=== PATIENT | female | born 1980 | race Caucasian/White ===

== ENCOUNTER 2018-01-25 19:38 | Emergency (ER) | payer OTHER, SELFPAY ==
[2018-01-25 19:38] VITALS: BMI 20.9
[2018-01-25] MEDS ORDERED: Sodium Chloride 0.9% 1,000 ML IV ONE ×2 (20:36→20:37)
[2018-01-25] MEDS ORDERED: Iohexol 240 (50 ml) PO ONE (20:38)
--- NOTE | 2018-01-25 20:39 | C.PDOC ---
History Of Present Illness 37 year old female presents to the ER with a complaint of intermittent RUQ pain for the past week, associated with some nausea and diarrhea today. Denies dysuria or hematuria. Chief Complaint (Nursing): Abdominal Pain History Per: Patient History/Exam Limitations: no limitations Onset/Duration Of Symptoms: Days, Intermittent Episodes Current Symptoms Are (Timing): Still Present Location Of Pain/Discomfort: RUQ Quality Of Discomfort: Unable To Describe Associated Symptoms: Nausea, Diarrhea. denies: Fever, Chills, Vomiting Exacerbating Factors: None Alleviating Factors: None Recent travel outside of the [place]: No Abnormal Vaginal Bleeding: No Past Medical History Reviewed: Historical Data, Nursing Documentation, Vital Signs Vital Signs: Last Vital Signs Temp 98.7 F 01/25/18 19:45 Pulse 87 01/25/18 19:45 Resp 20 01/25/18 19:45 BP 121/77 01/25/18 19:45 Pulse Ox 100 01/25/18 20:45 - Medical History PMH: Gall Bladder Disease, Pancreatitis Denies: Chronic Kidney Disease Surgical History: Cholecystectomy () - [facility] Procedures DILATION OF COMMON BILE DUCT WITH INTRALUMINAL DEVICE, ENDO (04/16/15) INSERTION OF INFUSION DEV INTO R BASILIC VEIN, PERC APPROACH (04/16/15) INTRODUCTION OF NUTRITIONAL INTO PERIPH VEIN, PERC APPROACH (04/16/15) LAPAROSCOPIC CHOLECYSTECTOMY (07/31/14) ULTRASONOGRAPHY OF RIGHT UPPER EXTREMITY VEINS, GUIDANCE (04/16/15) Family History: States: Unknown Family Hx - Social History Hx Tobacco Use: No Hx Alcohol Use: No Hx Substance Use: No - Immunization History Hx Tetanus Toxoid Vaccination: No Hx Influenza Vaccination: No Hx Pneumococcal Vaccination: No Review Of Systems Constitutional: Negative for: Fever, Chills Cardiovascular: Negative for: Chest Pain, Palpitations Respiratory: Negative for: Cough, Shortness of Breath Gastrointestinal: Positive for: Nausea, Abdominal Pain, Diarrhea. Negative for : Vomiting Genitourinary: Negative for: Dysuria, Hematuria Physical Exam - Physical Exam Appears: Other (Mild distress) Skin: Normal Color, Warm, Dry Head: Atraumatic, Normacephalic Eye(s): bilateral: Normal Inspection Oral Mucosa: Moist Chest: Symmetrical, No Tenderness Cardiovascular: Rhythm Regular Respiratory: Normal Breath Sounds, No Rales, No Rhonchi, No Wheezing Gastrointestinal/Abdominal: Soft, Tenderness (RUQ/Epigastric), No Guarding, No Rebound Back: No CVA Tenderness Neurological/Psych: Oriented x3, Normal Speech ED Course And Treatment - Laboratory Results Result Diagrams: 01/25/18 20:45 01/25/18 20:45 O2 Sat by Pulse Oximetry: 100 (room air) Pulse Ox Interpretation: Normal Progress Note: CT abd/pel, blood work, and urinalysis ordered. Bentyl, pepcid, IV fluids, and toradol administered. Disposition Counseled Patient/Family Regarding: Diagnosis - Disposition Referrals: [facility] [Outside] Disposition: HOME/ ROUTINE Disposition Time: 01:04 Condition: STABLE Prescriptions: Dicyclomine [Bentyl] 10 mg PO QID #20 cap Famotidine [Pepcid] 20 mg PO BID #20 tab Instructions: Acute Abdomen (Belly Pain), Adult (DC), Gastritis (DC), Inflammatory Bowel Disease Forms: [facility] (Ukrainian), Gen Discharge Inst Tajik Print Language: URDU - POA Present On Arrival: None - Clinical Impression Clinical Impression: Abdominal pain, Gastritis, Enteritis - Scribe Statement The provider has reviewed the documentation as recorded by the Scribe Hilario Mo All medical record entries made by the Isabellibrachel were at my direction and personally dictated by me. I have reviewed the chart and agree that the record accurately reflects my personal performance of the history, physical exam, medical decision making, and the department course for this patient. I have also personally directed, reviewed, and agree with the discharge instructions and disposition.
[2018-01-25 20:48] LABS: BASO % 0.3 % (0.0-2.0); EOS % 0.3 % (0.0-4.0); HEMOGLOBIN 13.5 g/dL (11.0-16.0); LYMPH # 1.2 K/uL (1.0-4.3); LYMPH % 12.2 % (20.0-40.0); MEAN CELL VOLUME 88.5 fL (81.0-99.0); MEAN CORPUSCULAR HEMOGLOBIN 29.8 pg (27.0-31.0); MEAN CORPUSCULAR HGB CONC 33.6 g/dL (33.0-37.0); MEAN PLATELET VOLUME 10.5 fL (7.2-11.7); MONO # 0.4 K/uL (0.0-0.8); NEUT % 83.2 % (50.0-75.0); NRBC % 0.1 % (0.0-2.0); RBC 4.54 Mil/uL (3.80-5.20); RED CELL DISTRIBUTION WIDTH 13.3 % (11.5-14.5); WHITE BLOOD COUNT 9.6 K/uL (4.8-10.8)
[2018-01-25 21:04] LABS: ALB/GLOB RATIO 1.3 (1.0-2.1); ALBUMIN 4.7 g/dL (3.5-5.0); CALCIUM 9.2 mg/dl (8.6-10.4); GFR AFRICAN-AMERICAN > 60; GFR NON-AFRICAN AMERICAN > 60; LIPASE 91 U/L (23-300)
[2018-01-25 21:06] LABS: ALT/SGPT 55 U/L (9-52); AST/SGOT 45 U/L (14-36); BLOOD UREA NITROGEN 10 mg/dL (7-17)
[2018-01-25 21:08] LABS: HCG,QUALITATIVE URINE NEGATIVE (NEGATIVE); SQUAMOUS EPITHIAL 1 /hpf (0-5); URINE BACTERIA RARE (<OCC); URINE BILIRUBIN NEGATIVE (NEGATIVE); URINE BLOOD NEGATIVE (NEGATIVE); URINE CLARITY Clear (Clear); URINE COLOR Straw (YELLOW); URINE GLUCOSE (UA) NORMAL (Normal); URINE LEUKOCYTE ESTERASE NEG Leu/uL (Negative); URINE PROTEIN NEGATIVE (NEGATIVE); URINE UROBILINOGEN NORMAL mg/dL (0.2-1.0)
[2018-01-25] MEDS ORDERED: Sodium Chloride 0.9% 1,000 ML ONE (21:08)
[2018-01-25] MEDS ORDERED: Iohexol 240 (50 ml) ONE (21:08)
[2018-01-25] MEDS ORDERED: Iodixanol 320 MG/ML 100 ML BOTTLE IV ONE (21:53)
[2018-01-26 01:22] VITALS: BP 99/64; PULSE 73; RESP 16; TEMP 98.9; O2SAT 98
--- NOTE | 2018-01-26 08:28 | CT ---
Date of service: 01/25/2018 PROCEDURE: CT Abdomen and Pelvis without intravenous contrast HISTORY: Abdominal pain COMPARISON: CT abdomen and pelvis dated 05/05/2015 TECHNIQUE: Multiple contiguous axial images were performed through the abdomen and pelvis with intravenous contrast. Subsequently, sagittal and coronal reformatted images were obtained. Radiation dose: Total exam DLP = 311 mGy-cm. This CT exam was performed using one or more of the following dose reduction techniques: Automated exposure control, adjustment of the mA and/or kV according to patient size, and/or use of iterative reconstruction technique. FINDINGS: LOWER THORAX: Unremarkable. LIVER: Diffuse decrease in hepatic parenchymal density consistent with fatty infiltration. GALLBLADDER AND BILE DUCTS: Cholecystectomy. PANCREAS: Unremarkable. No gross lesion or ductal dilatation. SPLEEN: Unremarkable. ADRENALS: Unremarkable. No mass. KIDNEYS AND URETERS: Unremarkable. No hydronephrosis. No solid mass. VASCULATURE: Unremarkable. No aortic aneurysm. BOWEL: Distal small bowel and terminal ileum are thick-walled raising suspicion for acute enteritis. No evidence gross obstruction. APPENDIX: Unremarkable. Normal appendix. PERITONEUM: Unremarkable. No free fluid. No free air. LYMPH NODES: Unremarkable. No enlarged lymph nodes. BLADDER: Unremarkable. REPRODUCTIVE: Unremarkable. Ovarian follicles. BONES: Degenerative changes. Relative areas of patchy sclerosis within the visualized osseous structures particularly at the level of pelvis. Clinical correlation. OTHER FINDINGS: None. IMPRESSION: Acute enteritis. Additional findings as above. These findings were preliminarily reported at 12:07 a.m. on 01/26/[address] Megan Townsend from [employer].
== END 2018-01-26 01:24 | disposition home or self-care (01) ==
LOC: C.ER 19:38
DX: K29.70 Gastritis, unspecified, without bleeding (principal); K52.9 Noninfective gastroenteritis and colitis, unspecified; R10.11 Right upper quadrant pain
CPT/HCPCS: 74177; 80053; 81001; 83690; 84703; 85025; 96372; 96374; 96375; 99284; J0500; J1885; J7030; Q9966; Q9967

== ENCOUNTER 2018-03-22 18:13 | Emergency (ER) | payer OTHER ==
[2018-03-22 18:27] VITALS: BMI 25.4
[2018-03-22] MEDS ORDERED: Sodium Chloride 0.9% 1,000 ML IV ONE (20:22)
--- NOTE | 2018-03-22 20:23 | C.PDOC ---
History Of Present Illness 38 year old female presents to the ED c/o of abdominal pain for the past 4-5 days. Patient reports her pain is associated with nausea and vomiting. Patient states she went to her [employer] doctor who gave her antibiotics. Patient has previous history of pancreatitis. Patient denies fever, chills, diarrhea, dysuria, hematuria, back pain. Chief Complaint (Nursing): Abdominal Pain History Per: Patient History/Exam Limitations: no limitations Onset/Duration Of Symptoms: Days (4-5) Current Symptoms Are (Timing): Still Present Location Of Pain/Discomfort: Epigastric Radiation Of Pain To:: None Quality Of Discomfort: "Pain" Associated Symptoms: Nausea, Vomiting. denies: Diarrhea, Loss Of Appetite, Urinary Symptoms Alleviating Factors: None Recent travel outside of the [place]: No Additional History Per: Patient Abnormal Vaginal Bleeding: No Past Medical History Reviewed: Historical Data, Nursing Documentation, Vital Signs Vital Signs: Last Vital Signs Temp 98.5 F 03/22/18 18:28 Pulse 66 03/22/18 18:28 Resp 18 03/22/18 18:28 BP 124/71 03/22/18 18:28 Pulse Ox 98 03/22/18 18:28 - Medical History PMH: Gall Bladder Disease, Pancreatitis Denies: Chronic Kidney Disease Surgical History: Cholecystectomy () - [facility] Procedures DILATION OF COMMON BILE DUCT WITH INTRALUMINAL DEVICE, ENDO (04/16/15) INSERTION OF INFUSION DEV INTO R BASILIC VEIN, PERC APPROACH (04/16/15) INTRODUCTION OF NUTRITIONAL INTO PERIPH VEIN, PERC APPROACH (04/16/15) LAPAROSCOPIC CHOLECYSTECTOMY (07/31/14) ULTRASONOGRAPHY OF RIGHT UPPER EXTREMITY VEINS, GUIDANCE (04/16/15) Family History: States: Unknown Family Hx - Social History Hx Tobacco Use: No Hx Alcohol Use: No Hx Substance Use: No - Immunization History Hx Tetanus Toxoid Vaccination: No Hx Influenza Vaccination: No Hx Pneumococcal Vaccination: No Review Of Systems Constitutional: Negative for: Fever, Chills Cardiovascular: Negative for: Chest Pain Respiratory: Negative for: Cough Gastrointestinal: Positive for: Nausea, Vomiting, Abdominal Pain. Negative for: Diarrhea Genitourinary: Negative for: Dysuria, Hematuria Musculoskeletal: Negative for: Back Pain Physical Exam - Physical Exam Appears: Non-toxic, In Acute Distress (due to pain) Skin: Normal Color, Warm, Dry Head: Atraumatic, Normacephalic Eye(s): bilateral: Normal Inspection Oral Mucosa: Moist Neck: Normal ROM, Supple Chest: Symmetrical Cardiovascular: Rhythm Regular Respiratory: Normal Breath Sounds, No Rales, No Rhonchi, No Wheezing Gastrointestinal/Abdominal: Soft, Tenderness (epigastric and hypogastric), No Guarding, No Rebound Extremity: Normal ROM, No Tenderness, No Swelling Neurological/Psych: Oriented x3, Normal Speech, Normal Cognition Gait: Steady ED Course And Treatment - Laboratory Results Result Diagrams: 03/22/18 20:26 03/22/18 20:26 O2 Sat by Pulse Oximetry: 98 (ON RA) Pulse Ox Interpretation: Normal - CT Scan/US CT abd/pelvis Other Rad Studies (CT/US): Read By Radiologist, Radiology Report Reviewed CT/US Interpretation: CT SCAN OF THE ABDOMEN AND PELVIS WITH CONTRAST. CLINICAL HISTORY: Abdominal pain. TECHNIQUE: Multiple axial and coronal CT images were obtained through the abdomen and pelvis after administration of an oral intravenous contrast material. COMPARISON: 01/25/2018. COMMENTS: The liver is of uniform attenuation without mass or defect. There is no intra or extrahepatic biliary ductal dilatation. The spleen is normal. The gallbladder is surgically absent. The pancreas is of normal contour and attenuation characteristics. There is no evidence of adrenal mass. Both kidneys demonstrate prompt and equal nephrograms. The kidneys are normal in size, shape and configuration. There is no evidence of renal or ureteral mass. No renal or ureteral calculi are identified. There is no hydroureter or hydronephrosis. No evidence for appendicitis. There is no bowel wall thickening. No evidence for small or large bowel obstruction. There is no evidence of abdominal ascites or lymphadenopathy. There is no evidence of intrinsic or extrinsic bladder mass. There is no pelvic ascites or lymphadenopathy. Diffusely thickened bladder. 1.7 cm left ovarian cyst. Images of the lung bases show no evidence of pleural or parenchymal mass. There are no pleural effusions. The bony structures are free of lytic or blastic lesions. IMPRESSION: Diffusely thickened bladder, probably underdistention. Exclusion of mild cystitis can be better done by correlation with urinalysis. Otherwise, no active pathology. Thank you for your kind referral of this patient. . Electronically signed on Mar 23, 2018 12:28:45 AM EDT by: Emily Ott M.D., Certified by MICKI, MSK, Neuroradiology Medical Decision Making Medical Decision Making: Plan: * CT abd/pelvis * Labs * Bentyl 20 mg IM * Pepcid 20 mg IVP * IV fluids * UA Disposition Counseled Patient/Family Regarding: Diagnosis - Disposition Referrals: [facility] [Outside] Disposition: HOME/ ROUTINE Disposition Time: 01:07 Condition: STABLE Prescriptions: Ciprofloxacin [Cipro] 1 tab PO BID #14 tab Dicyclomine [Bentyl] 10 mg PO QID #14 cap Instructions: Acute Abdomen (Belly Pain), Child (DC), Acute Cystitis (DC) Forms: [employer] (Romansh) Print Language: MALAY - POA Present On Arrival: None - Clinical Impression Clinical Impression: Abdominal pain, Cystitis - Scribe Statement The provider has reviewed the documentation as recorded by the Scribe Mj Cavazos All medical record entries made by the Scribe were at my direction and personally dictated by me. I have reviewed the chart and agree that the record accurately reflects my personal performance of the history, physical exam, medical decision making, and the department course for this patient. I have also personally directed, reviewed, and agree with the discharge instructions and disposition.
[2018-03-22] MEDS ORDERED: Iohexol 240 (50 ml) PO ONE (20:25)
[2018-03-22 20:31] LABS: BASO % 0.3 % (0.0-2.0); EOS # 0.1 K/uL (0.0-0.7); EOS % 1.2 % (0.0-4.0); HEMOGLOBIN 12.7 g/dL (11.0-16.0); LYMPH # 3.2 K/uL (1.0-4.3); LYMPH % 31.5 % (20.0-40.0); MEAN CELL VOLUME 88.4 fL (81.0-99.0); MEAN CORPUSCULAR HEMOGLOBIN 30.3 pg (27.0-31.0); MEAN CORPUSCULAR HGB CONC 34.3 g/dL (33.0-37.0); MONO # 0.5 K/uL (0.0-0.8); NEUT # 6.2 K/uL (1.8-7.0); RBC 4.19 Mil/uL (3.80-5.20); RED CELL DISTRIBUTION WIDTH 13.2 % (11.5-14.5); WHITE BLOOD COUNT 10.1 K/uL (4.8-10.8)
[2018-03-22 20:36] LABS: HCG,QUALITATIVE URINE NEGATIVE (NEGATIVE)
[2018-03-22] MEDS ORDERED: Sodium Chloride 0.9% 1,000 ML ONE (20:41)
[2018-03-22 20:42] LABS: SQUAMOUS EPITHIAL 2 /hpf (0-5); URINE BACTERIA RARE (<OCC); URINE BILIRUBIN NEGATIVE (NEGATIVE); URINE BLOOD NEGATIVE (NEGATIVE); URINE CLARITY Clear (Clear); URINE COLOR Straw (YELLOW); URINE GLUCOSE (UA) NORMAL (Normal); URINE LEUKOCYTE ESTERASE NEG Leu/uL (Negative); URINE PROTEIN NEGATIVE (NEGATIVE); URINE UROBILINOGEN NORMAL mg/dL (0.2-1.0)
[2018-03-22] MEDS ORDERED: Iohexol 240 (50 ml) ONE (20:42)
[2018-03-22 20:45] LABS: ALB/GLOB RATIO 1.4 (1.0-2.1); ALBUMIN 4.5 g/dL (3.5-5.0); ALT/SGPT 55 U/L (9-52); AST/SGOT 42 U/L (14-36); BLOOD UREA NITROGEN 11 mg/dL (7-17); CALCIUM 9.7 mg/dl (8.6-10.4); GFR NON-AFRICAN AMERICAN > 60; LIPASE 119 U/L (23-300)
[2018-03-22 21:31] VITALS: TEMP 98.7
[2018-03-22] MEDS ORDERED: Iodixanol 320 MG/ML 100 ML BOTTLE IV ONE (23:07)
[2018-03-23 02:22] VITALS: BP 115/85; PULSE 88; RESP 14; O2SAT 100
--- NOTE | 2018-03-23 10:02 | CT ---
Date of service: 03/22/2018 PROCEDURE: CT Abdomen and Pelvis with contrast HISTORY: abd pain/ hx of pancreatitis/ pelvic pain COMPARISON: 01/25/2018 TECHNIQUE: Intravenous contrast dose: 100 cc Visipaque 320 Radiation dose: Total exam DLP = 300.92 mGy-cm. This CT exam was performed using one or more of the following dose reduction techniques: Automated exposure control, adjustment of the mA and/or kV according to patient size, and/or use of iterative reconstruction technique. FINDINGS: LOWER THORAX: Unremarkable. LIVER: Hepatic steatosis. No focal masses. No intrahepatic bile duct dilatation or perihepatic ascites. GALLBLADDER AND BILE DUCTS: Status post cholecystectomy. No abnormality is seen in the gallbladder fossa. PANCREAS: Unremarkable. No gross lesion or ductal dilatation. SPLEEN: Unremarkable. ADRENALS: Unremarkable. No mass. KIDNEYS AND URETERS: Unremarkable. No hydronephrosis. No solid mass. VASCULATURE: Unremarkable. No aortic aneurysm. BOWEL: Unremarkable. No obstruction. No gross mural thickening. APPENDIX: Normal appendix. PERITONEUM: Unremarkable. No free fluid. No free air. LYMPH NODES: Unremarkable. No enlarged lymph nodes. BLADDER: Unremarkable. REPRODUCTIVE: Small left adnexal cysts, follicles. BONES: No acute fracture. OTHER FINDINGS: None. IMPRESSION: No acute findings related to/accounting for the clinical presentation. Additional benign and/or incidental findings described above. Concordant results (preliminary interpretation) provided by [employer]. Procedure Completed: 23:26 Preliminary Report: Dictated and Authenticated: 00:28 Final Interpretation: 10:00. March 22, 2018
== END 2018-03-23 02:20 | disposition home or self-care (01) ==
LOC: C.ER 18:13
DX: N30.90 Cystitis, unspecified without hematuria (principal); R10.13 Epigastric pain
CPT/HCPCS: 74177; 80053; 81001; 83690; 84703; 85025; 96372; 96374; 96375; 99284; J0500; J2405; J2765; J7030; Q9966; Q9967

== ENCOUNTER 2018-03-26 17:58 | Emergency (ER) | payer OTHER ==
[2018-03-26 17:58] VITALS: BMI 25.4
[2018-03-26] MEDS ORDERED: Sodium Chloride 0.9% 1,000 ML IV ONE (18:34)
--- NOTE | 2018-03-26 19:07 | C.PDOC ---
History Of Present Illness 38 year old female presents to the ED BIBA status post syncopal episode at PMD Dr. Karley Motta's office. Reports she felt weak and passed out after she was given injections of Benadryl and B12. Denies any head injury or trauma. Notes epi gastric pain radiating to back. Denies any chest pain, shortness of breath, palpitations, vomiting, nausea, or diarrhea. Time Seen by Provider: 03/26/18 18:27 Chief Complaint (Nursing): Syncope History Per: Patient, EMS History/Exam Limitations: no limitations Onset/Duration Of Symptoms: Days Current Symptoms Are (Timing): Still Present Past Medical History Reviewed: Historical Data, Nursing Documentation, Vital Signs Vital Signs: Last Vital Signs Temp 98.6 F 03/26/18 18:30 Pulse 71 03/26/18 18:30 Resp 18 03/26/18 18:30 BP 103/67 03/26/18 18:30 Pulse Ox 97 03/26/18 18:30 - Medical History PMH: Gall Bladder Disease, Pancreatitis Denies: Chronic Kidney Disease Surgical History: Cholecystectomy () - [email or web address] Procedures DILATION OF COMMON BILE DUCT WITH INTRALUMINAL DEVICE, ENDO (04/16/15) INSERTION OF INFUSION DEV INTO R BASILIC VEIN, PERC APPROACH (04/16/15) INTRODUCTION OF NUTRITIONAL INTO PERIPH VEIN, PERC APPROACH (04/16/15) LAPAROSCOPIC CHOLECYSTECTOMY (07/31/14) ULTRASONOGRAPHY OF RIGHT UPPER EXTREMITY VEINS, GUIDANCE (04/16/15) Family History: States: No Known Family Hx - Social History Hx Tobacco Use: No Hx Alcohol Use: No Hx Substance Use: No - Immunization History Hx Tetanus Toxoid Vaccination: No Hx Influenza Vaccination: No Hx Pneumococcal Vaccination: No Review Of Systems Cardiovascular: Negative for: Chest Pain, Palpitations Respiratory: Negative for: Shortness of Breath Gastrointestinal: Positive for: Abdominal Pain (epigastric pain radiating to her back ). Negative for: Nausea, Vomiting Physical Exam - Physical Exam Appears: Non-toxic, Other (Mild pain ) Skin: Warm, Dry Head: Atraumatic, Normacephalic, No Abrasion, No Laceration Eye(s): bilateral: Normal Inspection, PERRL, EOMI Nose: Normal Oral Mucosa: Moist Neck: Normal ROM Chest: Symmetrical Cardiovascular: Rhythm Regular Respiratory: Normal Breath Sounds, No Rales, No Rhonchi, No Wheezing Gastrointestinal/Abdominal: Soft, Tenderness (Epigastric tenderness), No Guarding, No Rebound, Other (laparoscopic scar noted to RUQ) Extremity: Normal ROM Extremity: Bilateral: Atraumatic Neurological/Psych: Oriented x3, Normal Speech, Normal Motor, Normal Sensation, Normal Reflexes Gait: Steady ED Course And Treatment - Laboratory Results Result Diagrams: 03/26/18 19:30 03/26/18 19:30 O2 Sat by Pulse Oximetry: 97 (RA) Pulse Ox Interpretation: Normal Progress Note: Patient treated with Toradol, Zofran, Protonix and IV fluids. Blood and urine collected and sent to the lab for analysis. EKG and CXR ordered. - Physician Consult Information Physician Contacted: Vj Motta Outcome Of Conversation: Spoke with PMD, patient given IM benadryl and Vit B12. Approx 30 min later, patient went to the bathroom, and after using the bathroom had 1 syncopal episode in the office. EMS called. Vitals normal in office. Disposition Counseled Patient/Family Regarding: Studies Performed, Diagnosis, Need For Followup - Disposition Referrals: Vj Motta MD [Staff Provider] - Disposition: HOME/ ROUTINE Disposition Time: 21:50 Condition: STABLE Additional Instructions: FOLLOW UP WITH YOUR DOCTOR IN 1-2 DAYS DRINK PLENTY OF FLUIDS RETURN TO EMERGENCY ROOM IF SYMPTOMS WORSEN SEGUIR CON LARKIN MDICO EN 1-2 [place] BEBER MUCHO LQUIDO VUELVA A LA [facility] DE [facility] SI LOS SNTOMAS SE [place] PROBLEMAS Instructions: Vasovagal Response (DC), Chronic Pancreatitis (DC) Forms: [employer] (Uzbek) Print Language: CAMBODIAN - Clinical Impression Clinical Impression: Episode of syncope, Chronic pancreatitis - Scribe Statement The provider has reviewed the documentation as recorded by the Scribe Brandi Brown All medical record entries made by the Scribe were at my direction and personally dictated by me. I have reviewed the chart and agree that the record accurately reflects my personal performance of the history, physical exam, medical decision making, and the department course for this patient. I have also personally directed, reviewed, and agree with the discharge instructions and disposition.
[2018-03-26 19:20] VITALS: RESP 16
[2018-03-26 19:37] LABS: BASO % 0.1 % (0.0-2.0); EOS # 0.1 K/uL (0.0-0.7); EOS % 0.6 % (0.0-4.0); HEMOGLOBIN 12.8 g/dL (11.0-16.0); LYMPH # 0.8 K/uL (1.0-4.3); LYMPH % 7.3 % (20.0-40.0); MEAN CORPUSCULAR HEMOGLOBIN 30.1 pg (27.0-31.0); MEAN CORPUSCULAR HGB CONC 34.2 g/dL (33.0-37.0); MONO # 0.2 K/uL (0.0-0.8); MONO % 1.4 % (0.0-10.0); NEUT # 9.8 K/uL (1.8-7.0); NEUT % 90.6 % (50.0-75.0); NRBC % 0.1 % (0.0-2.0); PLATELET COUNT 205 K/uL (130-400); RBC 4.26 Mil/uL (3.80-5.20); WHITE BLOOD COUNT 10.8 K/uL (4.8-10.8)
[2018-03-26 19:55] LABS: ALB/GLOB RATIO 1.2 (1.0-2.1); ALBUMIN 4.5 g/dL (3.5-5.0); ALT/SGPT 48 U/L (9-52); AST/SGOT 42 U/L (14-36); BLOOD UREA NITROGEN 6 mg/dL (7-17); CALCIUM 9.2 mg/dl (8.6-10.4); GFR NON-AFRICAN AMERICAN > 60; LIPASE 56 U/L (23-300)
[2018-03-26 19:57] LABS: HCG,QUALITATIVE URINE NEGATIVE (NEGATIVE)
[2018-03-26 20:00] LABS: SQUAMOUS EPITHIAL 3 /hpf (0-5); URINE BILIRUBIN NEGATIVE (NEGATIVE); URINE CLARITY Clear (Clear); URINE COLOR Straw (YELLOW); URINE GLUCOSE (UA) NORMAL (Normal); URINE LEUKOCYTE ESTERASE NEG Leu/uL (Negative); URINE PROTEIN NEGATIVE (NEGATIVE); URINE UROBILINOGEN NORMAL mg/dL (0.2-1.0)
[2018-03-26 20:03] LABS: CK-MB 0.34 ng/mL (0.0-3.38)
[2018-03-26 20:04] LABS: URINE BLOOD TRACE-INTACT (NEGATIVE)
[2018-03-26 20:13] LABS: EOSINOPHIL 1 % (0-4); LYMPHOCYTE 10 % (20-40); MONOCYTE 3 % (0-10); NEUTROPHIL 86 % (50-75); TOTAL CELLS COUNTED 100
[2018-03-26 20:14] LABS: LARGE PLATELETS PRESENT; OVALOCYTES SLIGHT; PLATELET ESTIMATE NORMAL (NORMAL); POIKILOCYTOSIS SLIGHT
[2018-03-26] MEDS ORDERED: Iodixanol 320 MG/ML 100 ML BOTTLE IV ONE (20:47)
[2018-03-26 22:11] VITALS: BP 104/65; PULSE 64; TEMP 98.3; O2SAT 98
--- NOTE | 2018-03-27 08:39 | RAD ---
Date of service: 03/26/2018 PROCEDURE: CHEST RADIOGRAPH, 1 VIEW HISTORY: Syncope COMPARISON: 05/04/2015. FINDINGS: LUNGS: The lungs are clear. PLEURA: No pneumothorax or pleural fluid seen. CARDIOVASCULAR: Normal. OSSEOUS STRUCTURES: No significant abnormalities. VISUALIZED UPPER ABDOMEN: Normal. OTHER FINDINGS: None. IMPRESSION: No active pulmonary disease.
--- NOTE | 2018-03-27 10:30 | CT ---
Date of service: 03/26/2018 CTA chest PE protocol Indication: Elevated D-dimer, syncope Technique: Contiguous axial images were obtained through the chest with intravenous contrast enhancement. Sagittal and coronal reconstructions were generated and reviewed. This CT exam was performed using 1 or more of the following dose reduction techniques: Automated exposure control, adjustment of the MAA and/or kV according to patient size, and/or use of iterative reconstruction technique. IV contrast: 100 mL Visipaque 320 IV Radiation dose (DLP): 271.87 MGy-cm. Comparison: Chest x-ray performed 03/26/18 Findings: Visualized portions of the inferior thyroid gland appear unremarkable. The mediastinal and hilar vascular structures appear within normal limits. The heart appears within normal limits of size. No large central or segmental pulmonary embolus evident. No focal consolidation. No pleural effusion. No pneumothorax. No suspicious pulmonary nodules measuring greater than 5 mm. Limited visualized portions of the upper abdomen; cholecystectomy clips. No acute osseous abnormality is detected. Impression: No large central or segmental pulmonary embolus identified. Cholecystectomy. Preliminary impression was provided by [employer].
--- NOTE | 2018-03-27 18:35 | CARD ---
APPROVED REPORT Date of service: 03/26/2018 EKG Measurement Heart [id number] <Conclusion> Normal sinus rhythm Normal ECG
== END 2018-03-26 22:12 | disposition home or self-care (01) ==
LOC: C.ER 17:58
DX: R55 Syncope and collapse (principal); K86.1 Other chronic pancreatitis; K86.81 Exocrine pancreatic insufficiency
CPT/HCPCS: 71045; 71275; 80053; 81001; 82550; 82553; 83690; 84484; 84703; 85025; 85378; 93005; 96361; 96374; 96375; 99285; C9113; J1885; J2405; J7030; Q9967

== ENCOUNTER 2018-07-25 20:48 | Emergency (ER) | payer OTHER, SELFPAY ==
[2018-07-25 20:49] VITALS: BMI 25.4
[2018-07-25 21:09] VITALS: TEMP 97.9
[2018-07-25] MEDS ORDERED: Sodium Chloride 0.9% 1,000 ML IV ONE ×3 (21:27→22:37)
--- NOTE | 2018-07-25 21:27 | C.PDOC ---
History Of Present Illness Patient is a 38 year old female, with a PMHx of pancreatitis, who presents to the ED c/o severe mid epigastric abdominal pain since this morning. Patient describes the pain as sharp and stabbing and rates it as a 6/10. She denies any nausea, vomiting, diarrhea, alcohol or drug use. Time Seen by Provider: 07/25/18 21:26 Chief Complaint (Nursing): Abdominal Pain History Per: Patient History/Exam Limitations: no limitations Onset/Duration Of Symptoms: Hrs (morning ) Current Symptoms Are (Timing): Still Present Context: Other Severity: Severe Pain Scale Rating Of: 6 Location Of Pain/Discomfort: Epigastric (mid) Radiation Of Pain To:: None Quality Of Discomfort: Sharp, Stabbing Associated Symptoms: denies: Nausea, Vomiting, Diarrhea Exacerbating Factors: None Alleviating Factors: None Last Bowel Movement: Today Recent travel outside of the [place]: No Additional History Per: Patient Abnormal Vaginal Bleeding: No Past Medical History Reviewed: Historical Data, Nursing Documentation, Vital Signs Vital Signs: Last Vital Signs Temp 97.9 F 07/25/18 21:04 Pulse 84 07/25/18 21:04 Resp 20 07/25/18 21:04 BP 131/74 07/25/18 21:04 Pulse Ox 98 07/25/18 21:04 - Medical History PMH: Gall Bladder Disease, Pancreatitis Denies: Chronic Kidney Disease Surgical History: Cholecystectomy () - [facility] Procedures DILATION OF COMMON BILE DUCT WITH INTRALUMINAL DEVICE, ENDO (04/16/15) INSERTION OF INFUSION DEV INTO R BASILIC VEIN, PERC APPROACH (04/16/15) INTRODUCTION OF NUTRITIONAL INTO PERIPH VEIN, PERC APPROACH (04/16/15) LAPAROSCOPIC CHOLECYSTECTOMY (07/31/14) ULTRASONOGRAPHY OF RIGHT UPPER EXTREMITY VEINS, GUIDANCE (04/16/15) Family History: States: Unknown Family Hx - Social History Hx Tobacco Use: No Hx Alcohol Use: Yes Hx Substance Use: No - Immunization History Hx Tetanus Toxoid Vaccination: No Hx Influenza Vaccination: No Hx Pneumococcal Vaccination: No Review Of Systems Constitutional: Negative for: Fever, Chills Respiratory: Negative for: Shortness of Breath Gastrointestinal: Positive for: Abdominal Pain (mid epigastric ). Negative for: Nausea, Vomiting, Diarrhea Musculoskeletal: Negative for: Back Pain Skin: Negative for: Rash Neurological: Negative for: Weakness Psych: Negative for: Anxiety Physical Exam - Physical Exam Appears: Non-toxic, In Acute Distress Skin: Warm, Dry Head: Normacephalic Eye(s): bilateral: Normal Inspection Oral Mucosa: Moist Neck: Trachea Midline, Supple Chest: Symmetrical Cardiovascular: Rhythm Regular Respiratory: No Rales, No Rhonchi, No Wheezing Gastrointestinal/Abdominal: Soft, Tenderness (mid epigastric), No Distention, No Guarding, No Rebound Back: No CVA Tenderness Extremity: Normal ROM Extremity: Bilateral: Atraumatic Pulses: Left Dorsalis Pedis: Normal, Right Dorsalis Pedis: Normal Neurological/Psych: Oriented x3 Gait: Steady ED Course And Treatment - Laboratory Results Result Diagrams: 07/25/18 22:10 07/25/18 22:10 ECG: Interpreted By Me, Viewed By Me ECG Rhythm: Sinus Rhythm (60), Nonspecific Changes O2 Sat by Pulse Oximetry: 98 (on RA) Pulse Ox Interpretation: Normal Progress Note: Plan: EKG. Labs. Urinalysis. Urinalysis HCG. Pepcid 20mg IVP. Morphine 4mg IVP. Zofran 4mg IVP. IV Fluids Reevaluation Time: 01:51 Reassessment Condition: Improved Medical Decision Making Medical Decision Making: Upon provider reevaluation patient is feeling better, is medically stable, and requires no further treatment in the ED at this time. Patient will be discharged home with Rx for protonix, tramadol . Counseling was provided and all questions were answered regarding diagnosis and need for follow up with dr crowley. There is agreement to discharge plan. Return if symptoms persist or worsen. Disposition Counseled Patient/Family Regarding: Studies Performed, Diagnosis, Need For Followup, Rx Given - Disposition Referrals: Vj Motta MD [Staff Provider] - Disposition: HOME/ ROUTINE Disposition Time: 21:27 Condition: FAIR Additional Instructions: Please return if symptoms recur Prescriptions: Pantoprazole Sodium [Protonix] 40 mg PO DAILY #15 ect traMADol [Ultram] 50 mg PO TID PRN #15 tab PRN Reason: Pain, Severe (8-10) Instructions: Acute Abdomen (Belly Pain), Adult (DC), Colic (DC) Forms: [employer] (Amharic) Print Language: PORTUGUESE - Clinical Impression Clinical Impression: Abdominal pain, Abdominal pain, colicky - Scribe Statement Sanjana Pych All medical record entries made by the Scribe were at my direction and personally dictated by me. I have reviewed the chart and agree that the record accurately reflects my personal performance of the history, physical exam, medical decision making, and the department course for this patient. I have also personally directed, reviewed, and agree with the discharge instructions and disposition.
[2018-07-25] MEDS ORDERED: Morphine 4 MG/ML VIAL ONE (21:38)
[2018-07-25] MEDS ORDERED: Sodium Chloride 0.9% 2,000 ML ONE (21:38)
[2018-07-25 22:23] LABS: BASO % 0.4 % (0.0-2.0); EOS # 0.2 K/uL (0.0-0.7); EOS % 2.4 % (0.0-4.0); HEMOGLOBIN 13.2 g/dL (11.0-16.0); LYMPH # 3.1 K/uL (1.0-4.3); LYMPH % 37.7 % (20.0-40.0); MEAN CELL VOLUME 88.8 fL (81.0-99.0); MEAN CORPUSCULAR HEMOGLOBIN 29.5 pg (27.0-31.0); MEAN CORPUSCULAR HGB CONC 33.2 g/dL (33.0-37.0); MEAN PLATELET VOLUME 10.4 fL (7.2-11.7); MONO # 0.5 K/uL (0.0-0.8); MONO % 5.7 % (0.0-10.0); NEUT # 4.5 K/uL (1.8-7.0); NEUT % 53.8 % (50.0-75.0); NRBC % 0.1 % (0.0-2.0); RBC 4.47 Mil/uL (3.80-5.20); RED CELL DISTRIBUTION WIDTH 13.3 % (11.5-14.5); WHITE BLOOD COUNT 8.3 K/uL (4.8-10.8)
[2018-07-25 22:31] LABS: ALB/GLOB RATIO 1.5 (1.0-2.1); ALBUMIN 4.7 g/dL (3.5-5.0); ALT/SGPT 79 U/L (9-52); AST/SGOT 47 U/L (14-36); BLOOD UREA NITROGEN 12 mg/dL (7-17); CALCIUM 9.1 mg/dl (8.6-10.4); GFR NON-AFRICAN AMERICAN > 60; LIPASE 169 U/L (23-300)
[2018-07-25] MEDS ORDERED: Iodixanol 320 MG/ML 100 ML BOTTLE IV ONE (23:09)
[2018-07-25 23:45] LABS: SQUAMOUS EPITHIAL < 1 /hpf (0-5); URINE BILIRUBIN NEGATIVE (NEGATIVE); URINE BLOOD NEGATIVE (NEGATIVE); URINE CLARITY Clear (Clear); URINE COLOR Straw (YELLOW); URINE GLUCOSE (UA) NORMAL (Normal); URINE LEUKOCYTE ESTERASE NEG Leu/uL (Negative); URINE PROTEIN NEGATIVE (NEGATIVE); URINE UROBILINOGEN NORMAL mg/dL (0.2-1.0)
[2018-07-25 23:53] LABS: HCG,QUALITATIVE URINE NEGATIVE (NEGATIVE)
[2018-07-26 02:13] VITALS: BP 110/62; PULSE 82; RESP 18; O2SAT 97
--- NOTE | 2018-07-26 10:16 | CT ---
Date of service: 07/26/2018 PROCEDURE: CT Abdomen and Pelvis with contrast HISTORY: severe abd pain, hx of pancreatitis COMPARISON: CT abdomen and pelvis with contrast performed 03/22/18 TECHNIQUE: Contrast dose: 100 mL Visipaque 320 IV Radiation dose: Total exam DLP = 418.69 mGy-cm. This CT exam was performed using one or more of the following dose reduction techniques: Automated exposure control, adjustment of the mA and/or kV according to patient size, and/or use of iterative reconstruction technique. FINDINGS: LOWER THORAX: No visible consolidation, pleural effusion, or pneumothorax. LIVER: Hypoattenuation of the liver compatible with hepatic steatosis. GALLBLADDER AND BILE DUCTS: Cholecystectomy. Common bile duct measures approximately 10 mm. PANCREAS: Unremarkable. SPLEEN: Unremarkable. ADRENALS: Unremarkable. KIDNEYS AND URETERS: The kidneys enhance symmetrically. No hydronephrosis or obstructing calculus identified. VASCULATURE: No aortic aneurysm. No atherosclerotic calcification or mural plaque present. BOWEL: Tiny hiatal hernia. Stomach is nondistended. Lack of oral contrast limits evaluation for bowel pathology. Bowel loops appear within normal limits of caliber without evidence of obstruction. Mild nonspecific small bowel wall thickening; correlate clinically for possibility of enteritis. APPENDIX: The appendix appears within normal limits of caliber. No secondary signs of acute appendicitis. PERITONEUM: No significant free fluid. No definite free air. LYMPH NODES: No bulky adenopathy identified. BLADDER: Unremarkable. REPRODUCTIVE: Uterus is present. 1.5 cm probable left ovarian cyst. BONES: No acute osseous abnormality is detected. OTHER FINDINGS: None. IMPRESSION: Dilated common bile duct in the setting of cholecystectomy. Hypoattenuation of the liver compatible with hepatic steatosis. Mild small bowel wall thickening; correlate clinically for possibility of enteritis. 1.5 cm probable left ovarian cyst. Pelvic ultrasound may be considered for further evaluation if indicated. Preliminary impression was provided by [employer].
--- NOTE | 2018-07-27 16:07 | CARD ---
APPROVED REPORT Date of service: 07/25/2018 EKG Measurement Heart [id number] <Conclusion> Normal sinus rhythm Normal ECG
== END 2018-07-26 01:55 | disposition home or self-care (01) ==
LOC: C.ER 20:48
DX: R10.13 Epigastric pain (principal); R10.84 Generalized abdominal pain
CPT/HCPCS: 74177; 80053; 81001; 83690; 84703; 85025; 93005; 96374; 96375; 99285; J2270; J2405; J7030; Q9967

== ENCOUNTER 2018-09-04 15:40 | Outpatient (CLI) | payer OTHER | END 2018-09-04 15:41 | disposition home or self-care (01) | LOC: C.USIC 15:40 | DX: R10.2 Pelvic and perineal pain (principal); Z12.31 Encounter for screening mammogram for malignant neoplasm of breast ==